=== PATIENT | female | born 1945 | race African-American/Black ===

== ENCOUNTER 2020-02-05 09:20 | Emergency (ER) | payer BC, MEDICARE ==
[~2020-02-05] VITALS: Ht 157.5 cm; Wt 35.0 kg
[2020-02-05] MEDS ORDERED: VANCOMYCIN 1 G PREMIX 200 ML IV ONE (09:30)
[2020-02-05] MEDS ORDERED: PIPERACILLIN/TAZ 3.375G PREMIX 50 ML IV ONE (09:30)
[2020-02-05] MEDS ORDERED: SODIUM CHLORIDE 0.9% 1,000 ML IV ONE (09:33)
[2020-02-05 10:04] LABS: BG BASE EXCESS -11.9 mmol/L (-2.0-2.0); BG CARBOXYHEMOGLOBIN 0.2 % (0.5-1.5); BG DEOXYHEMOGLOBIN 0.9 % (0.0-5.0); BG FRACTION INSPIRED OXYGEN 99.8; BG HCO3 ACT 11.6 mmol/L (22.0-26.0); BG METHEMOGLOBIN 0.3 % (0.0-1.5); BG OXYGEN SATURATION 99.1 % (92.0-98.5); BG OXYHEMOGLOBIN 98.6 % (94.0-97.0); BG PCO2 20.6 mmHg (35.0-45.0); BG PH 7.367 (7.350-7.450); BG PO2 292.7 mmHg (75.0-100.0); BG SAMPLE SITE RIGHT BRACHIAL; BG TOTAL HEMOGLOBIN 10.5 g/dL (12.0-18.0); BG VENT MODE MASK - NRB
[2020-02-05] MEDS ORDERED: NOREPINEPHRINE 4MG/250ML PMX 250 ML IV STA (10:38)
[2020-02-05 11:11] LABS: HEMATOCRIT. 29.6 % (36.0-48.0); HEMOGLOBIN. 9.2 g/dL (12.0-16.0); MEAN CORPUSCULAR HEMOGLOBIN 27.8 pg (28.0-32.0); MEAN CORPUSCULAR VOLUME 89.3 fL (81.0-99.0); MEAN PLATELET VOLUME 10.2 fl (7.4-10.4); PLATELET 96 x1000/uL (130-400); RED BLOOD CELL COUNT 3.31 mill/uL (4.2-5.4); RED CELL DISTRIBUTION WIDTH 19.2 % (11.6-14.6)
[2020-02-05 11:18] LABS: CHLORIDE 105 mEq/L (98-107)
[2020-02-05 11:20] LABS: CLARITY URINE CLOUDY (CLEAR); COLOR URINE RED (YELLOW); KETONES URINE TRACE (NEGATIVE); LEUKOCYTE ESTERASE URINE 1+ (NEGATIVE); NITRITE URINE NEGATIVE (NEGATIVE); OCCULT BLOOD URINE NEGATIVE (NEGATIVE); PH URINE 5.5 (4.5-8.0); PROTEIN URINE TRACE (NEGATIVE); SPECIFIC GRAVITY URINE 1.019 (1.005-1.030)
[2020-02-05 11:28] LABS: CREATINE KINASE 55 IU/L (26-192); D-DIMER 7.18 mg/L FEU (<0.50); INR 1.8
[2020-02-05 12:00] LABS: NUCLEATED RED BLOOD CELLS 9 /100 WBC; PLATELET ESTIMATE DECREASED
[2020-02-05] MEDS ORDERED: SODIUM BICARBONATE 150 MEQ in DEXTROSE 5% WATER 1,000 ML IV SCH (15:45)
[2020-02-05] MEDS ORDERED: SODIUM BICARBONATE 8.4% 1 MEQ/ML 50ML SYR IV NR (16:00)
[2020-02-05 16:17] LABS: BG BASE EXCESS -3.1 mmol/L (-2.0-2.0); BG CARBOXYHEMOGLOBIN 0.2 % (0.5-1.5); BG DEOXYHEMOGLOBIN 0.7 % (0.0-5.0); BG HCO3 ACT 20.1 mmol/L (22.0-26.0); BG METHEMOGLOBIN 0.4 % (0.0-1.5); BG OXYGEN SATURATION 99.3 % (92.0-98.5); BG OXYHEMOGLOBIN 98.7 % (94.0-97.0); BG PCO2 30.2 mmHg (35.0-45.0); BG PH 7.442 (7.350-7.450); BG PO2 352.9 mmHg (75.0-100.0); BG SAMPLE SITE RIGHT RADIAL; BG TOTAL HEMOGLOBIN 10.7 g/dL (12.0-18.0); BG VENT MODE MASK - NRB
[2020-02-05] MEDS ORDERED: MEROPENEM 1,000 MG in SODIUM CHLORIDE 0.9% 100 ML IV NR (16:30)
[2020-02-05] MEDS ORDERED: DEXT 5%/0.45% NACL 1000ML 1,000 ML IV SCH (18:00)
[2020-02-05] MEDS ORDERED: MEROPENEM 1,000 MG in SODIUM CHLORIDE 0.9% 100 ML IV SCH (22:00)
[2020-02-05 22:23] VITALS: BP 142/80
== END 2020-02-05 22:26 | disposition home or self-care (01) ==
LOC: ER 09:20 → EDBEDREQSVC 12:36 → EDBEDREQTM 12:36 → EDBEDREQ 12:36 → EDBEDREQSVC 14:11 → EDBEDREQ 19:32 → CANBEDREQ 21:23 → ER 22:26
DX: Z03.818 Encounter for observation for suspected exposure to other biological agents ruled out (principal); J18.9 Pneumonia, unspecified organism; R09.02 Hypoxemia; R41.82 Altered mental status, unspecified; R06.02 Shortness of breath; I95.9 Hypotension, unspecified; Z85.118 Personal history of other malignant neoplasm of bronchus and lung
CPT/HCPCS: 36415; 36556; 36600; 71045; 80053; 81003; 82375; 82550; 82728; 82805; 83605; 83615; 84145; 84484; 85025; 85379; 85384; 85610; 86140; 87040; 87086; 87804; 93005; 96361; 96365; 96375; 99291; J2185; J2543; J3370; J3490; J7030; J7050; J7070; U0003